=== PATIENT | male | born 1960 | race Caucasian/White ===

== ENCOUNTER 2025-05-30 09:14 | Day surgery (SDC) | payer OTHER ==
[~2025-05-30] VITALS: Ht 190.5 cm; Wt 90.8 kg
[2025-05-30] VITALS (21 sets, daily range): BP systolic 114–156; BP diastolic 75–99
[~2025-05-30 09:14] MED LIST: ANASTROZOLE1 M7 PO; TELM20 PO; TESTOSTERONE PELLET SC
[2025-05-30] MEDS ORDERED: Midazolam HCl 1MG / ML 2ML Vial ONE (10:18)
--- NOTE | 2025-05-30 10:23 | NUR ---
05/30/25 [id number] Monica Martin CONFIRMED AND REVIEWED H&P, MEDCICATIONS, ALLERGIES, MEDICAL HISTORY, RESPIRATORY HISTORY, VITAL SIGNS, 3-LEAD EKG, CONSENTS, AND PHYSICIAN ORDERS. PATIENT CONFIRMS NPO STATUS AND AGREES WITH SCHEDULED PROCEDURE. MONITOR INTACT WITH CONTINUOUS PULSE OXIMETRY, CAPNOGRAPHY, 3-LEAD EKG, INTERMITTENT BP. SUPPLEMENTAL O2 TO BE TITRATED THROUGHOUT PROCEDURE TO MAINTAIN O2 SATURATION ABOVE 90%. PATIENT DETERMINED TO BE ASA APPROPRIATE FOR PROPOFOL SEDATION PRIOR TO START OF PROCEDURE BY .MALLAMPATI CLASS 3 AIRWAY: VISUALIZATION OF ONLY THE BASE OF THE [facility].
== END 2025-05-30 11:30 | disposition home or self-care (01) ==
LOC: ORSCMMR 09:14 → ORD 10:00 → ORSCMMR 11:30
DX: Z12.11 Encounter for screening for malignant neoplasm of colon (principal); R19.5 Other fecal abnormalities; D12.2 Benign neoplasm of ascending colon; K62.1 Rectal polyp; N62 Hypertrophy of breast; I10 Essential (primary) hypertension; J44.9 Chronic obstructive pulmonary disease, unspecified; Z79.899 Other long term (current) drug therapy
CPT/HCPCS: 88305; J2250; J2704; J7120